=== PATIENT | female | born 1945 | race Caucasian/White ===

== ENCOUNTER → 2019-10-25 | Outpatient (CLI) | payer OTHER | LOC: SJCVCIMAG 10:24 → SJCVC 10:24 | PROVIDERS: ATTEND Internal Medicine Cardiovascular Disease | DX: I71.4 Abdominal aortic aneurysm, without rupture (principal); R94.31 Abnormal electrocardiogram [ECG] [EKG]; I25.10 Atherosclerotic heart disease of native coronary artery without angina pectoris; I10 Essential (primary) hypertension; E78.00 Pure hypercholesterolemia, unspecified; J44.9 Chronic obstructive pulmonary disease, unspecified; E11.9 Type 2 diabetes mellitus without complications; Z79.899 Other long term (current) drug therapy; Z87.891 Personal history of nicotine dependence ==

== ENCOUNTER → 2019-11-13 | Outpatient (CLI) | payer OTHER | LOC: SJCVCIMAG 09:30 | PROVIDERS: ATTEND Internal Medicine Cardiovascular Disease | DX: I49.3 Ventricular premature depolarization (principal); R00.0 Tachycardia, unspecified; J44.9 Chronic obstructive pulmonary disease, unspecified; I10 Essential (primary) hypertension; Z79.899 Other long term (current) drug therapy; Z87.891 Personal history of nicotine dependence ==

== ENCOUNTER → 2019-11-26 | Outpatient (CLI) | payer OTHER ==
[~2019-11-26] VITALS: Ht 157.5 cm; Wt 73.0 kg
[~2019-11-26] MED LIST: ASA81BEC PO; CRESTOR40 MG PO; METFORMIN HCL500 M3 PO; QUINAPRIL 20 MG20 MG PO; TOPROL XL50 MG PO
[2019-11-26 07:10] VITALS: BP 134/50
[2019-11-26 07:30] LABS: HEMATOCRIT 48.7 % (37.0-47.0); HEMOGLOBIN 15.9 gm/dL (12.0-15.0); MCH 29.9 pg (26.0-34.0); MCHC 32.7 g/dL (28.0-37.0); MCV 91.4 fL (80.0-100.0); RBC 5.33 mil/uL (4.20-5.00); RDW 13.7 % (10.5-14.5); WBC 7.1 thou/uL (4.0-11.0)
[2019-11-26 07:31] LABS: CALCIUM 8.7 mg/dL (8.5-10.1); CREATININE 0.8 mg/dL (0.6-1.0)
--- NOTE | 2019-11-26 07:44 | EKG ---
[facility] [address] [place] [address] ELECTROCARDIOGRAM REPORT Name: RONNIE FERNÁNDEZ Room #: REG [facility]#: [id number] Admission: 11/26/19 Attend Phys: Jay Jay Bojorquez MD, Discharge: Date of : 41 Report #: [id number] THIS REPORT FOR: cc: Zoraida Saxean MD, Lin W. MD Santiago, Patrick MD [facility] ~ THIS REPORT FOR: //name// [facility] Test Date: 2019-11-26 Test Time: 07:38:39 Pat Name: RONNIE FERNÁNDEZ Department: Room: Gender: Pet Groomer: [facility] : 1945 Requested By: Jay Jay Bojorquez Order Number: [id number] MD: Hari Ha Measurements Intervals Dante Rate: 81 P: 48 CA: 160 QRS: -17 QRSD: 81 T: -8 QT: 384 QTc: 446 Interpretive Statements Sinus rhythm Inferior infarct, old Anterior infarct, old Compared to ECG 10/05/2006 07:01:53 No significant changes Electronically Signed On 11-26-2019 7:44:33 CDT by Hari Ha [email or web address] <ELECTRONICALLY SIGNED> By: Hari Ha MD, FAC 11/26/19 0744 7 7 Hari Ha MD, [facility] /EPI
--- NOTE | 2019-11-26 17:10 | CATHLAB ---
[facility] [place] [address] INVASIVE PROCEDURE REPORT Name: RONNIE FERNÁNDEZ Room #: REG [facility]#: [id number] Admission: 11/26/19 Attend Phys: Jay Jay Bojorquez MD, Discharge: Date of : 41 Report #: [id number] THIS REPORT FOR: cc: Zoraida Saxena MD, Lin W. MD Mancuso, Gerald M. MD [facility] ~ APPROVED REPORT Study performed: 11/26/2019 07:34:16 Patient Details Patient Status: Out-Patient Room #: The patient is a 74 year-old female Event Personnel Jay Jay Bojorquez Scribing Machine Operator, Sam Khalil RN RN, CroftonDaisha murdock RTR Monitor, Florina Chanel RTR, GUIDO Scrub, Steve Freeman RTR Scrub Procedures Performed Art Access - R femoral artery* Left Heart Cath w/or w/o Coronaries [id number] [facility] Aortogram Abdominal Peripheral Angio 002414 18913 Initial Mod Sed Same Phys/QHP Gr5y 267143 55235 Mod Sed Same Phys/QHP Ea 654452 Hemostasis w/ Mynx Procedure Narrative The Right Groin^ was infiltrated with 1% Lidocaine subcutaneous anesthesia. A PINNACLE 6FR Sheath #[id number] sheath was inserted into the RFA^. Coronary angiography was performed using coronary diagnostic catheters. The right coronary system was accessed and visualized with a JR4 catheter. The left coronary system was accessed and visualized with a JL4 catheter. The left ventricle was accessed and visualized with a PIGTAIL catheter. Left ventriculogram was performed in 30 degree projection. An aortogram of the abdominal aorta was performed. Pre-demployment femoral angiogram was performed . Closure device was deployed with a Fr MYNXGRIP 6/7F #[id number]. The patient tolerated the procedure well and there were no complications associated with the procedure. There was no hematoma. Intraoperative Conscious Sedation Sedation start time: 8:47 Case end Time: 9:17 Fentanyl 50 mcg Versed 1 mg [facility] [address] [place] [address] INVASIVE PROCEDURE REPORT Name: RONNIE FERNÁNDEZ Suzanne Room #: [facility]#: [id number] Admission: 11/26/19 Attend Phys: Jay Jay Bojorquez, Discharge: Date of : 41 Report #: [id number] Fluoro Time: 2.60 minutes Dose: DAP 4681.40 cGycm2 Contrast Type and Amount: Omnipaque 115 ml Hemodynamics The aortic pressure is 139/69 mmHg with a mean of 74 mmHg. The left ventricular pressure is 144/6 mmHg with a mean of mmHg. The left ventricular end diastolic pressure is 20 mmHg. Conclusion #1. Normal left jugular size and systolic function EF 60% #2 abdominal aorta revealing small infrarenal aortic aneurysm and moderate aortic ectasia calcification no flow limitation no iliac involvement. #3 ostial left main disease 20 to 30% otherwise preserved giving rise to LAD and circumflex #4 LAD with mild irregularities extends around the apex no occlusive disease mild proximal calcification #5 nondominant circumflex no occlusive disease. High rising OM or ramus branch widely patent in moderate distribution. #6 smaller caliber dominant right coronary artery with diffuse irregularity 3040% proximal small PDA GELACIO. Recommendations and plan: Continue aggressive risk factor modification no indication for coronary intervention. Will have six-month follow-up with abdominally aortoiliac ultrasound to evaluate interval enlargement and small aortic infrarenal aneurysm. <ELECTRONICALLY SIGNED> By: Jay Jay Bojorquez MD, FACC 11/26/191709 09 09 Jay Jay Bojorquez MD, FACC /INF
== END | disposition home or self-care (01) ==
LOC: CATH 06:22
PROVIDERS: ATTEND Internal Medicine Cardiovascular Disease
DX: I25.10 Atherosclerotic heart disease of native coronary artery without angina pectoris (principal); I71.4 Abdominal aortic aneurysm, without rupture; I10 Essential (primary) hypertension; E11.9 Type 2 diabetes mellitus without complications; E78.00 Pure hypercholesterolemia, unspecified; J44.9 Chronic obstructive pulmonary disease, unspecified; Z98.890 Other specified postprocedural states; Z79.899 Other long term (current) drug therapy; Z87.442 Personal history of urinary calculi; Z79.82 Long term (current) use of aspirin

== ENCOUNTER → 2020-07-13 | Outpatient (CLI) | payer OTHER | LOC: SJCVCIMAG 08:42 | PROVIDERS: ATTEND Internal Medicine Cardiovascular Disease | DX: R94.31 Abnormal electrocardiogram [ECG] [EKG] (principal); E78.00 Pure hypercholesterolemia, unspecified; I10 Essential (primary) hypertension; R06.02 Shortness of breath; J44.9 Chronic obstructive pulmonary disease, unspecified; I71.4 Abdominal aortic aneurysm, without rupture; E11.9 Type 2 diabetes mellitus without complications; Z87.891 Personal history of nicotine dependence; Z79.84 Long term (current) use of oral hypoglycemic drugs; Z79.899 Other long term (current) drug therapy ==

== ENCOUNTER → 2021-04-14 | Outpatient (CLI) | payer OTHER | LOC: SJCVC 09:40 | PROVIDERS: ATTEND Internal Medicine Cardiovascular Disease | DX: I10 Essential (primary) hypertension (principal); E78.00 Pure hypercholesterolemia, unspecified; I71.4 Abdominal aortic aneurysm, without rupture; J44.9 Chronic obstructive pulmonary disease, unspecified; E11.9 Type 2 diabetes mellitus without complications; I25.10 Atherosclerotic heart disease of native coronary artery without angina pectoris; Z87.891 Personal history of nicotine dependence; Z79.84 Long term (current) use of oral hypoglycemic drugs; Z79.899 Other long term (current) drug therapy; Z82.49 Family history of ischemic heart disease and other diseases of the circulatory system ==